=== PATIENT | female | born 1990 | race Caucasian/White ===

== ENCOUNTER 2018-10-29 08:30 | Inpatient (IN) | payer BC, OTHER ==
[2018-11-24] MEDS ORDERED: Bupivacaine 0.25% HCL 30 ML VIAL ONE (11:11)
[2018-11-24] MEDS ORDERED: hydrALAZINE 20 MG/ML VIAL SLOW IVP PRN (23:52)
[2018-11-24] MEDS ORDERED: NS w/ Oxytocin 10 units 500 ML IV SCH ×2 (23:52)
[2018-11-24] MEDS ORDERED: Butorphanol Tartrate 1 MG/ML VIAL SLOW IVP PRN (23:52)
[2018-11-24] MEDS ORDERED: Lidocaine 1% (PF) 30 ML VIAL SC PRN (23:52)
[2018-11-24] MEDS ORDERED: NS / Oxytocin 40 units/1000ml 1,000 ML IV PRN (23:52)
[2018-11-24] MEDS ORDERED: Promethazine HCl 25 MG/ML VIAL IM PRN (23:52)
[2018-11-24] MEDS ORDERED: Ondansetron PF 4 MG/2 ML Vial IVP PRN (23:52)
[2018-11-24] MEDS ORDERED: HYDROcodone/Acetaminophen 5/325 mg Tablet PO PRN ×2 (23:52)
[2018-11-24] MEDS ORDERED: Ibuprofen 800 MG TAB PO PRN (23:52)
[2018-11-25 00:12] VITALS: BMI 27.1
[2018-11-25] MEDS: Lactated Ringer's 1,000 ML IV SCH ×3 (00:43→07:13)
[2018-11-25 01:03] LABS: Hemoglobin 13.1 g/dL (12.0-16.0); Mean Corpuscular HGB CONC 35.5 g/dL (32.0-36.0); Mean Corpuscular Volume 90.2 fL (78.0-98.0); Mean Platelet Volume 10.2 fL (7.4-10.4); Platelet Count 139 thou/uL (130-400); RBC Distribution Width 11.3 % (11.5-14.5); White Blood Cell (WBC) Count 8.1 thou/uL (4.8-10.8)
[2018-11-25 01:42] LABS: HBSAg Index 0.27 S/CO (0-0.99); Hep B Surf Ag Non-Reactive S/CO (NonReactive)
[2018-11-25] MEDS ORDERED: Dinoprostone 10 MG Suppository VAG SCH (01:45)
[2018-11-25] MEDS: Misoprostol 100 MCG TAB VAG SCH ×2 (03:27→06:53)
[2018-11-25] MEDS ORDERED: Fentanyl 4 mcg/Bup 0.1% Cadd 100 ML ONE (05:07)
[2018-11-25] MEDS ORDERED: Lactated Ringer's 500 ML IV PRN (05:55)
[2018-11-25] MEDS ORDERED: Acetaminophen 325 MG TAB PO PRN (05:55)
[2018-11-25] MEDS ORDERED: diphenhydrAMINE 50 MG/ML VIAL IVP PRN (05:55)
[2018-11-25] MEDS ORDERED: ePHEDrine/0.9% NaCl/PF SYRINGE 50 mg/10 ml SLOW IVP PRN (05:55)
[2018-11-25] MEDS ORDERED: Ondansetron PF 4 MG/2 ML Vial IVP PRN (05:55)
[2018-11-25] MEDS ORDERED: Promethazine HCl 25 MG/ML VIAL IM PRN (05:55)
[2018-11-25] MEDS ORDERED: Naloxone HCl 0.4 mg/ml Vial IVP PRN ×2 (05:55)
[2018-11-25] MEDS ORDERED: Fentanyl 4 mcg/Bupivacaine 0.1% Cassette 100 ML EPIDURAL SCH (06:00)
[2018-11-25] MEDS ORDERED: Communication Order-Pharmacy FS SCH (06:00)
[2018-11-25] MEDS ORDERED: Bicitra 30 ML UDCUP ONE (07:37)
[2018-11-25] MEDS ORDERED: Bicitra 30 ML UDCUP PO SCH (07:45)
[2018-11-25] MEDS ORDERED: CEFAZOLIN 2 GM, Admixture Fee 1 EACH in Sodium Chloride 0.9% 100 ML IVPB SCH (07:45)
--- NOTE | 2018-11-25 08:07 | PDOC.LDHP ---
Labor and Delivery H&P Chief complaint: scheduled induction HPI: Pt presented late last night for post dates IOL. Pt presented with deceleration noted on the monitor shortly after admission and before IOL started. Plan of care reviewed and cytotec order changed to cervidil. The patient had the cervidil removed after approx 2 hrs for prolonged deceleration. Patient was noted to have a closed cervix on admission as well as exam this AM. Current gestational age (weeks): 41 Due date: 11/18/18 Dating criteria: last menstrual period, first trimester ultrasound Grav: 1 Para: 0 Current complications: none Abnormal US findings: No Past Medical History: OCD Current medications: pre- vitamins Previous surgical history: none, other (right knee) Allergies/Adverse Reactions: Allergies Allergy/AdvReac Type Severity Reaction Status Date / Time hydrocodone Allergy Intermediate Rash Verified 11/25/18 00:14 Social history: none - Physical Exam Vital signs reviewed and normal: yes General: resting Heart: RRR Lungs: CTAB Abdomen: gravid Extremeties: no edema FHT: category 2 - Vaginal Exam cm dilated: 0 - OB Labs Blood type: O RH: positive Antibody Screen: negative HIV: negative RPR: negative HEPSAg: negative 1 hour GCT: negative GBS: negative Rubella: immune - Assessment L&D Assessment: medically indicated induction - Plan Plan: admit to L&D, informed consent obtained, anesthesia consult for pain management -: A/P: Pt is presented for IOL @ 41 weeks with spontaneous decel noted before cervical ripening with recovery to Cat1 with decelerations prolonged and late noted with cervidil which was removed. Suspect intolerance to labor ( with closed cervix) related to placental insufficiency. Discussed 1CS, anesthesia notified, pt and baby stable at time.
[2018-11-25] MEDS ORDERED: MORPHINE 5 MG/10 ML PF VIAL ONE (11:30)
[2018-11-25] MEDS ORDERED: Oxytocin 10 UNITS/ML VIAL ONE ×2 (11:30→12:09)
[2018-11-25] MEDS ORDERED: Fentanyl 100 MCG/2 ML VIAL ONE (11:30)
[2018-11-25] MEDS ORDERED: Ondansetron PF 4 MG/2 ML Vial ONE ×2 (11:30→11:45)
[2018-11-25] MEDS ORDERED: Lidocaine 2% MPF 10 ML AMP (For Epidural Use) ONE (11:30)
[2018-11-25] MEDS ORDERED: Metoclopramide HCl 10 MG/2 ML VIAL ONE ×2 (11:30→11:45)
[2018-11-25] MEDS ORDERED: Ketorolac Tromethamine 30 MG/ML VIAL ONE ×2 (11:45→12:19)
[2018-11-25] MEDS ORDERED: Lidocaine 2% PF 5 ML VIAL ONE (11:45)
[2018-11-25] MEDS ORDERED: Ropivacaine 0.2% 550 ML 750 ML NERVE BLCK SCH (12:00)
[2018-11-25] MEDS ORDERED: Ropivacaine HCl/PF 750 ML in Premix Bag 1 BAG NERVE BLCK SCH (12:00)
[2018-11-25] MEDS ORDERED: Meperidine HCl/PF 25 MG/ML VIAL SLOW IVP PRN (12:23)
[2018-11-25] MEDS ORDERED: L&D-Morphine 4 MG/ML VIAL SLOW IVP PRN (12:23)
[2018-11-25] MEDS ORDERED: HYDROmorphone 2 MG/ML VIAL SLOW IVP PRN (12:23)
[2018-11-25] MEDS ORDERED: Ondansetron HCl/PF 4 MG/2 ML Vial IVP PRN (12:23)
--- NOTE | 2018-11-25 13:24 | OP ---
DATE OF PROCEDURE: 11/25/2018 PREOPERATIVE DIAGNOSIS: intolerance to labor with a closed cervix. POSTOPERATIVE DIAGNOSIS: intolerance to labor with a closed cervix. PROCEDURES PERFORMED: 1. Primary low transverse section. 2. Placement of ON-Q pump. CREDIT RATING INSPECTOR: Emmy Zhao MD. ANESTHESIA: Epidural with Dr. Fernandes at the bedside during the case. ESTIMATED BLOOD LOSS: 800 mL. COMPLICATIONS: None. OPERATIVE FINDINGS: 1. Low-transverse hysterotomy without extension. 2. Infant delivered from occiput posterior position. Apgars 8 and 9, weight 6 pounds 9 ounces, male to [facility]. 3. Hysterotomy closed in 2 layers with hemostasis noted. 4. Normal-appearing uterus, tubes, and ovaries bilaterally. 5. Fundus firm after delivery of the placenta and closure of the hysterotomy. DESCRIPTION OF PROCEDURE: The patient was taken back to the OR with IV fluids running. When she was in the OR, she was placed in dorsal supine position with a left lateral tilt. Guardado catheter and epidural catheter had previously been placed during induction of labor. The abdomen was prepped and draped in normal fashion for section. Surgeons were gowned and gloved and scrubbed in. Anesthesia was tested and found to be adequate. A Pfannenstiel skin incision was made with a scalpel. Skin incision was carried down through the subcutaneous tissue to the fascia. Once the fascia was reached, it was incised in the midline and extended superolaterally using curved Blake scissors. Curry clamps were placed at the superior border of the fascia, which was sharply and bluntly dissected off the rectus abdominis muscles. After the fascia had been dissected both inferiorly and superiorly to allow adequate space for delivery of the , the muscles were bluntly in the midline. The peritoneum was bluntly and stretched. An Ruiz O retractor was placed into the peritoneal cavity for retraction, visualization, and protection of the wound. A bladder flap was created using Metzenbaum scissors and the bladder was dissected away from the planned hysterotomy site. A low-transverse hysterotomy was made with a scalpel. The hysterotomy was created using the Quintero maneuver. An amniotomy was performed. The infant was then delivered from occiput posterior position through the hysterotomy from the vertex presentation. The nose and mouth were suctioned. The cord was doubly clamped and cut, and the infant was handed off to special care nurses in attendance. Cord blood was collected. The placenta was delivered and sent for pathologic review. The uterus was exteriorized, massaged to firm, and cleared off clot and debris. A moist lap was placed with a hemostatic tag into the abdomen once the uterine was replaced in the abdominal cavity to keep the bowel out of the operative field. The hysterotomy was inspected and no extension noted. Ring forceps were placed along the edges of the hysterotomy for hemostasis during closure. Monocryl suture was used to close the hysterotomy in a running locked fashion. After the hysterotomy was closed, a second imbricating layer was completed. After the imbricating layer was completed, the hysterotomy was irrigated and suctioned dry. No areas of bleeding were noted. The peritoneum was then reapproximated with chromic suture. The muscles were inspected and no areas of bleeding were noted. Two ON-Q catheter tips were placed through the skin, subcutaneous tissue, and fascia and directed into the contralateral corners. After the ON-Q catheter tips were placed in position, the fascia was closed using PDS suture in a running fashion from corner to corner. The subcutaneous tissue was then irrigated and dried. Any small areas of bleeding were controlled with Bovie cauterization. A plain gut suture was then used to reapproximate the subcutaneous layer. The skin was closed with 4-0 Monocryl and dressed with Dermabond dressing. The ON-Q catheter tips were primed and sterile dressings were applied. The patient tolerated the procedure well and was transferred to the recovery room in good condition. Job ID: [id number]
[2018-11-25] MEDS ORDERED: Simethicone Chewable 80 MG TAB PO PRN (15:51)
[2018-11-25] MEDS ORDERED: hydrALAZINE 20 MG/ML VIAL SLOW IVP PRN (15:51)
[2018-11-25] MEDS ORDERED: Bisacodyl 10 MG SUPP PR PRN (15:51)
[2018-11-25] MEDS ORDERED: Lanolin Ointment 7 GM TUBE TOP PRN (15:51)
[2018-11-25] MEDS: Ibuprofen 800 MG TAB PO SCH (20:13)
[2018-11-25] MEDS: Docusate Calcium (SURFAK) 240 MG CAP PO SCH (20:13)
[2018-11-25] MEDS: traMADol HCl 50 MG TAB PO PRN (20:14)
[2018-11-26 04:30] LABS: Hemoglobin 10.3 g/dL (12.0-16.0); Mean Corpuscular HGB CONC 34.6 g/dL (32.0-36.0); Mean Corpuscular Hemoglobin 31.8 pg (27.0-31.0); Platelet Count 96 thou/uL (130-400); RBC Distribution Width 11.2 % (11.5-14.5); Red Blood Cell (RBC) Count 3.25 mill/uL (4.20-5.40); White Blood Cell (WBC) Count 9.4 thou/uL (4.8-10.8)
[2018-11-26] MEDS: Ibuprofen 800 MG TAB PO SCH ×3 (06:37→21:23)
[2018-11-26] MEDS: traMADol HCl 50 MG TAB PO PRN ×3 (06:37→21:23)
[2018-11-26] MEDS: Ferrous Sulfate 325 MG TAB PO SCH ×2 (06:49→08:32)
[2018-11-26] MEDS: Misoprostol 100 MCG TAB VAG SCH (07:02)
--- NOTE | 2018-11-26 07:51 | PDOC.PP ---
Post Progress Note Post Day #: 1 Subjective: Pain controlled with On Q. Moderate lochia. Minimal flatus. Tolerating PO. PO intake tolerated: yes Ambulation: yes Vital Signs (12 hours) Temp Pulse Resp BP 11/26/18 03:45 98.1 F 68 16 112/64 Weight Weight 168 lb - Physical Examination General: NAD Cardiovascular: RRR Respiratory: non-labored breathing Abdominal: no distention, appropriately TTP Fundus firm & at: below umbilicus Extremities: negative homans (B) Skin: CS incision dry & intact Deviation from normal: On Q in place and secure Neurological: no gross focal deficits Psychiatric: A&Ox3, normal affect Result Diagrams: 11/26/18 03:54 Additional Labs: Post Labs Blood Type O POSITIVE 11/25/18 01:29 Hep Bs Antigen Non-Reactive S/CO (NonReactive) 11/25/18 00:33 (1) delivery delivered Code(s): O82 - ENCOUNTER FOR DELIVERY WITHOUT INDICATION Status: Acute (2) Anemia Code(s): D64.9 - ANEMIA, UNSPECIFIED Status: Acute Qualifiers: Other causes of anemia: acute posthemorrhagic - Assessment/Plan PPD1 VSSAF Continue post op care. Iron for anemia Plan for d/c 1-2 days.
--- NOTE | 2018-11-26 08:38 | OP ---
DATE OF PROCEDURE: 11/25/2018 ADDENDUM: I was present and scrubbed to assist the uncomplicated primary low-transverse with Dr. Edmundo Castellano. Please see her note for full details. Job ID: [id number]
[2018-11-26] MEDS ORDERED: Adacel (T-DAP) 0.5 ML SYRINGE IM ONE (09:00)
[2018-11-26] MEDS: Docusate Calcium (SURFAK) 240 MG CAP PO SCH ×2 (10:07→21:23)
[2018-11-27] MEDS: Ferrous Sulfate 325 MG TAB PO SCH ×2 (02:23→09:47)
[2018-11-27] MEDS: Ibuprofen 800 MG TAB PO SCH ×2 (05:50→14:42)
[2018-11-27 07:58] VITALS: BP 112/74; TEMP 97.8
[2018-11-27] MEDS: Docusate Calcium (SURFAK) 240 MG CAP PO SCH (09:47)
--- NOTE | 2018-11-27 12:08 | PDOC.PP ---
Post Progress Note Post Day #: 2 Subjective: doing well, minimal pain, lori regular diet and ambulating, formula feeding, would like to DC today PO intake tolerated: yes Flatus: yes Ambulation: yes Vital Signs (12 hours) Temp Pulse Resp BP Pulse Ox 11/27/18 07:58 97.8 F 74 20 112/74 98 11/27/18 04:15 98.4 F 86 15 114/73 Weight Admit Weight 168 lb Weight 168 lb - Physical Examination General: NAD Respiratory: non-labored breathing Abdominal: no distention Skin: CS incision dry & intact, no rash Neurological: no gross focal deficits Psychiatric: A&Ox3, normal affect Result Diagrams: 11/26/18 03:54 Additional Labs: Post Labs Blood Type O POSITIVE 11/25/18 01:29 Hep Bs Antigen Non-Reactive S/CO (NonReactive) 11/25/18 00:33 (1) delivery delivered Code(s): O82 - ENCOUNTER FOR DELIVERY WITHOUT INDICATION Status: Acute - Assessment/Plan POD2 doing well,no concerns, plan for DC today.
[2018-11-27] MEDS: traMADol HCl 50 MG TAB PO PRN (12:36)
== END 2018-11-27 14:50 | disposition home or self-care (01) | DRG 787 ==
LOC: EDSTATUS 13:49 → L&D 11-24 23:40 → 3SE 11-25 15:49
PROVIDERS: ADMIT Obstetrics & Gynecology; ATTEND Obstetrics & Gynecology
PROC: 3E033VJ Introduction of Other Hormone into Peripheral Vein, Percutaneous Approach (ICD-10-PCS; 2018-11-25)
PROC: 10D00Z1 Extraction of Products of Conception, Low, Open Approach (ICD-10-PCS; principal; 2018-11-26)
DX: O76 Abnormality in fetal heart rate and rhythm complicating labor and delivery (principal); D62 Acute posthemorrhagic anemia; Z3A.41 41 weeks gestation of pregnancy; Z37.0 Single live birth; O48.0 Post-term pregnancy; O90.81 Anemia of the puerperium
CPT/HCPCS: 36415; 51702; 85027; 86850; 86900; 86901; 87340; 88307; J0690; J1885; J2001; J2274; J2405; J2590; J2765; J2795; J3010; J3490; S0020